=== PATIENT | male | born 1960 | race Caucasian/White ===

== ENCOUNTER → 2019-01-29 | Day surgery (SDC) | payer MEDICARE ==
[~2019-01-29] MED LIST: FENTANYL CITRATE/PF 100MCG/2 ML INJ ONE; KETAMINE HCL INJ 50 MG/ML 10 ML VIAL ONE; MIDAZOLAM HCL 2 MG/2 ML VIAL ONE; MULTI-VITAMIN1 EACH PO; PROPOFOL IV EMULSION 10 MG/ML 50 ML VIAL ONE; SIMVASTATIN40 MG PO
[2019-01-29 10:14] VITALS: BP 105/68
--- NOTE | 2019-01-29 17:11 | Operative Report ---
DATE OF PROCEDURE: 01/29/2019 SURGEON: Reji Hopkins MD PROCEDURE: Colonoscopy and polypectomy. INDICATION FOR COLONOSCOPY: Colorectal cancer screening. MEDICATIONS: The patient was done under MAC, please see anesthesiologist's note. PROCEDURE IN DETAIL: With the patient in the left lateral decubitus position, a flexible fiberoptic Olympus colonoscope was inserted into the rectum with ease and advanced all the way to the cecum. An approximately 8 mm sessile polyp was removed per snare electrocautery and polypectomy site was hemoclipped. The scope was then withdrawn slowly. The mucosa overlying the ascending, transverse, descending, sigmoid, and rectum appeared to be within normal limits. The scope was then retroflexed into the distal rectum and small internal hemorrhoids were noted, none of which was actively bleeding. The scope was then straightened out. It was subsequently withdrawn. The patient tolerated the procedure well. IMPRESSION: 1. Cecal polyp snared and hemoclipped. 2. Internal hemorrhoids, none actively bleeding. PLAN: Follow up histology. Initiate high-fiber, low-fat diet. Initiate high-fiber supplement. The patient might benefit from a followup colonoscopy in 3 to 5 years. Reji Hopkins MD [facility] [place] /[id number] cc: Orlando Mock MD
== END | disposition home or self-care (01) ==
LOC: OR 06:20
PROVIDERS: ATTEND Internal Medicine Gastroenterology
DX: Z12.11 Encounter for screening for malignant neoplasm of colon (principal); D12.0 Benign neoplasm of cecum; E78.5 Hyperlipidemia, unspecified; Z01.810 Encounter for preprocedural cardiovascular examination; K64.8 Other hemorrhoids
CPT/HCPCS: 45385; 88305; 93005; J2250; J2704; 45378